=== PATIENT | male | born 1960 | race Caucasian/White ===

== ENCOUNTER → 2017-10-23 | Outpatient (CLI) | payer SELFPAY ==
[~2017-10-23] MED LIST: ASPI325 PO; CARI350; DIAZ5 PO; DICL50ER; FISH1000 PO; HYDACE5 PO; LISI20 PO; NAPR375ER PO; ROSU10TA; ROSU10TA PO; SILD25T
== END | disposition home or self-care (01) ==
LOC: PLD 07:53 → LAB SHORT 07:53
DX: L82.1 Other seborrheic keratosis (principal)
CPT/HCPCS: 88305

== ENCOUNTER → 2024-10-19 | Outpatient (CLI) | payer MEDICARE | LOC: LAB SHORT 13:31 → LAB 13:31 | DX: L82.0 Inflamed seborrheic keratosis (principal); D48.5 Neoplasm of uncertain behavior of skin | CPT/HCPCS: 88305 ==